=== PATIENT | male | born 1945 | race Caucasian/White ===

== ENCOUNTER 2017-05-20 06:33 | Day surgery (SDC) | payer MEDICARE, BC ==
[2017-05-17 15:32] VITALS: BMI 33.2
[~2017-05-20 06:33] MED LIST: DEXAMETHASONE SOD PHOSPHATE 10 MG/ML 1 ML VIAL IV ONE; HEPARIN SODIUM,PORCINE 5,000 UNIT/ML 1 ML VIAL SQ ONE; HYDROmorphone 0.5 MG/0.5 ML SYRINGE IVP PRN; LACTATED RINGERS 1,000 ML IV SCH; LIDOCAINE 1% 20 ML VIAL (10MG/ML) FOR IV START INTRADERMA PRN; MIDAZOLAM 2 MG/2 ML VIAL IV PRN; ONDANSETRON 4 MG/2 ML VIAL IVP ONE; Pre Op ABX Message 1 EACH MISC MISCELLANE ONE; SCOPOLAMINE 1.5MG/72HR PATCH TRANSDERM ONE
[2017-05-20 06:51] VITALS: RESP 16; TEMP 97.1
[2017-05-20] MEDS ORDERED: BUPIVACAINE (PF) 0.25% 30 ML VIAL SQ ONE ×2 (07:49)
--- NOTE | 2017-05-20 07:59 | P.GSHP ---
History of Present Illness H&P Date: 05/20/17 Chief Complaint: Right scalp skin lesion This is a 71-year-old male who presents today for excision of a right lateral scalp skin lesion. Patient developed a 1 cm lesion behind his right ear. The lesion is tender. It is been present for approximately 2 months. It is nonhealing. 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 BPH; Grave's disease, lesion rt scalp History of Any Multi-Drug Resistant Organisms: None Reported Past Surgical History: Appendectomy, Cholecystectomy, Orthopedic Surgery Past Anesthesia/Blood Transfusion Reactions: No Reported Reaction Smoking Status: Former smoker - Past Family History Daughter(s) Family Medical History: Cancer Additional Family Medical History / Comment(s): breast cancer Father Family Medical History: Cancer Additional Family Medical History / Comment(s): lung Medications and Allergies Home Medications Medication Instructions Recorded Confirmed Type Cetirizine HCl/Pseudoephedrine 1 each PO BID PRN 11/06/13 05/20/17 History [Zyrtec-D Tablet] Levothyroxine Sodium [Synthroid] 150 mcg PO DAILY 11/06/13 05/20/17 History Lisinopril [Zestril] 5 mg PO DAILY 11/06/13 05/20/17 History Multivitamins, Thera [Multivitamin] 1 each PO DAILY 11/06/13 05/17/17 History Tadalafil [Cialis] 5 mg PO DAILY 11/06/13 05/20/17 History Metoprolol Tartrate [Lopressor] 12.5 mg PO DAILY 05/17/17 05/20/17 History Pantoprazole [Protonix] 40 mg PO DAILY 05/17/17 05/20/17 History Allergies Allergy/AdvReac Type Severity Reaction Status Date / Time budesonide [From Symbicort] Allergy nose bleeds Verified 05/20/17 07:08 formoterol [From Symbicort] Allergy nose bleeds Verified 05/20/17 07:08 Surgical - Exam Vital Signs Temp Pulse Resp BP Pulse Ox 97.1 F L 76 16 132/82 96 05/20/17 06:50 05/20/17 06:50 05/20/17 06:50 05/20/17 06:50 05/20/17 06:50 - General well developed, no distress - Eyes PERRL - ENT 1 cm scaly erythematous skin lesion steered to the ear - Neck no masses - Respiratory normal expansion - Cardiovascular Rhythm: regular - Abdomen Abdomen: soft, non tender Assessment and Plan Assessment: Right scalp lesion. We'll perform excisional biopsy.
[2017-05-20] MEDS ORDERED: ePHEDrine SULFATE/0.9% NACL/PF 50 MG/5 ML SYRINGE IV ONE (08:06)
[2017-05-20] MEDS ORDERED: PROPOFOL 10 MG/ML 20 ML VIAL IV ONE (08:06)
[2017-05-20] MEDS ORDERED: fentaNYL (PF) 50 MCG/ML 2 ML AMP ONE (08:06)
[2017-05-20] MEDS ORDERED: MIDAZOLAM 2 MG/2 ML VIAL ONE (08:06)
[2017-05-20] MEDS ORDERED: SODIUM CHLORIDE 0.9% 50 ML with ceFAZolin 2,000 MG IV ONE ×2 (08:22)
--- NOTE | 2017-05-20 09:24 | P.OP ---
Date of Procedure: 05/20/17 Preoperative Diagnosis: Right posterior ear scalp lesion Postoperative Diagnosis: Defer to pathology Procedure(s) Performed: Excision of scalp lesion Anesthesia: MAC Surgeon: Robbin Vital Estimated Blood Loss (ml): 5 Pathology: other (Scalp lesion) Condition: stable Disposition: PACU Description of Procedure: Patient's placed on the operating room table in the supine position. His scalp had been previously shaved in the preoperative hold area the scalp was prepped in usual sterile fashion. The scalp anesthetized 1% local Xylocaine. Using a 15 blade in elliptical skin incision was made around the lesion. The lesion measured approximately 1 cm diameter. The Bovie was used for hemostasis. The skin was closed interrupted 3-0 Monocryl suture. Dermabond was applied. Patient top she will well and was sent to recovery room stable condition.
[2017-05-20 11:06] VITALS: BP 106/72; PULSE 80
== END 2017-05-20 09:34 | disposition home or self-care (01) ==
LOC: OR 06:33
PROVIDERS: ATTEND Surgery
DX: C44.42 Squamous cell carcinoma of skin of scalp and neck (principal); R07.9 Chest pain, unspecified; J44.9 Chronic obstructive pulmonary disease, unspecified; K21.9 Gastro-esophageal reflux disease without esophagitis; I10 Essential (primary) hypertension; K22.70 Barrett's esophagus without dysplasia; N40.0 Benign prostatic hyperplasia without lower urinary tract symptoms; E05.00 Thyrotoxicosis with diffuse goiter without thyrotoxic crisis or storm; Z79.899 Other long term (current) drug therapy; Z88.8 Allergy status to other drugs, medicaments and biological substances; Z87.891 Personal history of nicotine dependence
CPT/HCPCS: 88305; 11621; J2250; J1644; J1100; J2405; J3010; J0690; J2704

== ENCOUNTER 2017-06-16 19:50 | Emergency (ER) | payer MEDICARE, BC ==
[2017-06-16 20:04] VITALS: RESP 18
[2017-06-16] MEDS ORDERED: KETOROLAC 30 MG/ML 1 ML VIAL IVP STA (20:04)
--- NOTE | 2017-06-16 20:10 | ED ---
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 He states it was sharp and will get worse with deep breathing or certain movements. He felt a pop at that time. He was seen by the physician executive staff assistant at his doctor's office prescribed Motrin which did seem to help until earlier today when the pain started getting worse. He denies any fevers chills nausea vomiting sweats cough or phlegm production. The pain does get worse with deep breathing and movement at rest this about 3-4/10 severity does get much worse with movement or deep breathing. He denies any abdominal pain or any other symptoms. (Tang Haji) - Related Data Home Medications Medication Instructions Recorded Confirmed Cetirizine HCl/Pseudoephedrine 1 tab PO BID PRN 11/06/13 06/16/17 [Zyrtec-D Tablet] Lisinopril [Zestril] 5 mg PO DAILY 11/06/13 06/16/17 Multivitamins, Thera [Multivitamin] 1 tab PO DAILY 11/06/13 06/16/17 Tadalafil [Cialis] 5 mg PO DAILY 11/06/13 06/16/17 Metoprolol Tartrate [Lopressor] 12.5 mg PO DAILY 05/17/17 06/16/17 Pantoprazole [Protonix] 40 mg PO DAILY 05/17/17 06/16/17 Levothyroxine Sodium [Synthroid] 150 mcg PO DAILY 06/16/17 06/16/17 Previous Rx's Medication Instructions Recorded Hydrocodone/Acetaminophen [[place] 1 each PO Q6HR PRN #20 tab 06/16/17 5-325] Allergies Allergy/AdvReac Type Severity Reaction Status Date / Time budesonide [From Symbicort] AdvReac nose bleeds Verified 06/16/17 20:11 formoterol [From Symbicort] AdvReac nose bleeds Verified 06/16/17 20:11 Review of Systems ROS Other: All systems not noted in ROS Statement are negative. <Tang Haji - Last Filed: 06/16/17 21:05> ROS Other: All systems not noted in ROS Statement are negative. <Dl Mejias - Last Filed: 06/16/17 22:15> ROS Statement: Those systems with pertinent positive or pertinent negative responses have been documented in the HPI. 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 BPH; Grave's disease, lesion rt scalp History of Any Multi-Drug Resistant Organisms: None Reported Past Surgical History: Appendectomy, Cholecystectomy, Orthopedic Surgery Past Anesthesia/Blood Transfusion Reactions: No Reported Reaction Past Psychological History: No Psychological Hx Reported Smoking Status: Former smoker Past Alcohol Use History: None Reported Past Drug Use History: None Reported - Past Family History Daughter(s) Family Medical History: Cancer Additional Family Medical History / Comment(s): breast cancer Father Family Medical History: Cancer Additional Family Medical History / Comment(s): lung <Tang Haji - Last Filed: 06/16/17 21:05> General Exam Limitations: no limitations General appearance: alert, in no apparent distress Head exam: Present: atraumatic, normocephalic, normal inspection Eye exam: Present: normal appearance, PERRL, EOMI. Absent: scleral icterus, conjunctival injection, periorbital swelling ENT exam: Present: normal exam, mucous membranes moist Neck exam: Present: normal inspection. Absent: tenderness, meningismus, lymphadenopathy Respiratory exam: Present: normal lung sounds bilaterally, chest wall tenderness (Repeat is tenderness palpation along the right costal chondral margin). Absent: respiratory distress, wheezes, rales, rhonchi, stridor Cardiovascular Exam: Present: regular rate, normal rhythm, normal heart sounds. Absent: systolic murmur, diastolic murmur, rubs, gallop, clicks GI/Abdominal exam: Present: soft, normal bowel sounds. Absent: distended, tenderness, guarding, rebound, rigid Extremities exam: Present: normal inspection, full ROM, normal capillary refill. Absent: tenderness, pedal edema, joint swelling, calf tenderness Back exam: Present: normal inspection Neurological exam: Present: alert, oriented X3, CN II-XII intact Psychiatric exam: Present: normal affect, normal mood Skin exam: Present: warm, dry, intact, normal color. Absent: rash <Tang Haji - Last Filed: 06/16/17 21:05> <Dl Mejias - Last Filed: 06/16/17 22:15> - General Exam Comments Initial Comments: This is a well-developed well-nourished awake alert oriented times 3 male (Adithya Tang) Course <Tang Haji - Last Filed: 06/16/17 21:05> <Dl Mejias - Last Filed: 06/16/17 22:15> Vital Signs 06/16/17 19:55 Temperature 97.7 F Pulse Rate 66 Respiratory 18 Rate Blood Pressure 157/84 O2 Sat by Pulse 97 Oximetry - Reevaluation(s) Reevaluation #1: 06/16/17 21:05 The patient's care will be endorsed to Dr. Mejias at our shift change. I did discuss this with the patient has . CAT scan of the chest EKG and cardiac enzymes are pending. (Tang Haji) Medical Decision Making - Lab Data Result diagrams: 06/16/17 20:21 06/16/17 20:21 <Tang Haji - Last Filed: 06/16/17 21:05> - Lab Data Result diagrams: 06/16/17 20:21 06/16/17 20:21 <Dl Mejias - Last Filed: 06/16/17 22:15> - Medical Decision Making EKG shows sinus rhythm with occasional PAC at 60 bpm MO interval is 180 QRS 108 QT interval 426 QTC is 426. Patient's EKG shows no ST segment elevation or depression or T wave abnormalities are noted I took over the care of the patient at 9 PM. I will back and reexamined the patient patient indicated to me he originally hurt the right side of his chest wall and across patient twisting the wrong way and since then his been getting slowly better. Patient states today he twisted again and reinjured that area and he came in because of that pain. Patient states the pain is reproducible with palpation and hurts with deep breathing. I examined him it was exquisitely tender to palpation (Dl Mejias) - Lab Data Lab Results 06/16/17 06/16/17 06/16/17 Range/Units 20:21 20:21 20:21 WBC 7.2 (3.8-10.6) k/uL RBC 5.00 (4.30-5.90) m/uL Hgb 15.1 (13.0-17.5) gm/dL Hct 45.2 (39.0-53.0) % MCV 90.4 (80.0-100.0) fL MCH 30.2 (25.0-35.0) pg MCHC 33.4 (31.0-37.0) g/dL RDW 13.9 (11.5-15.5) % Plt Count 208 (150-450) k/uL Neutrophils % 63 % Lymphocytes % 22 % Monocytes % 6 % Eosinophils % 6 % Basophils % 1 % Neutrophils # 4.5 (1.3-7.7) k/uL Lymphocytes # 1.6 (1.0-4.8) k/uL Monocytes # 0.5 (0-1.0) k/uL Eosinophils # 0.4 (0-0.7) k/uL Basophils # 0.0 (0-0.2) k/uL PT (9.0-12.0) sec INR (<1.2) APTT (22.0-30.0) sec D-Dimer (<0.60) mg/L FEU Sodium 141 (137-145) mmol/L Potassium 4.3 (3.5-5.1) mmol/L Chloride 107 (98-107) mmol/L Carbon Dioxide 25 (22-30) mmol/L Anion Gap 9 mmol/L BUN 17 (9-20) mg/dL Creatinine 1.17 (0.66-1.25) mg/dL Est GFR (MDRD) Af Amer >60 (>60 ml/min/1.73 sqM) Est GFR (MDRD) Non-Af >60 (>60 ml/min/1.73 sqM) Glucose 112 H (74-99) mg/dL Calcium 9.3 (8.4-10.2) mg/dL Magnesium 2.2 (1.6-2.3) mg/dL Total Bilirubin 0.3 (0.2-1.3) mg/dL AST 28 (17-59) U/L ALT 35 (21-72) U/L Alkaline Phosphatase 81 (38-126) U/L Total Creatine Kinase 143 (55-170) U/L CK-MB (CK-2) 1.7 (0.0-2.4) ng/mL CK-MB (CK-2) Rel Index 1.2 Troponin I 0.016 (0.000-0.034) ng/mL Total Protein 6.6 (6.3-8.2) g/dL Albumin 3.8 (3.5-5.0) g/dL Amylase 191 H (30-110) U/L Lipase 144 (23-300) U/L 06/16/17 Range/Units 20:21 WBC (3.8-10.6) k/uL RBC (4.30-5.90) m/uL Hgb (13.0-17.5) gm/dL Hct (39.0-53.0) % MCV (80.0-100.0) fL MCH (25.0-35.0) pg MCHC (31.0-37.0) g/dL RDW (11.5-15.5) % Plt Count (150-450) k/uL Neutrophils % % Lymphocytes % % Monocytes % % Eosinophils % % Basophils % % Neutrophils # (1.3-7.7) k/uL Lymphocytes # (1.0-4.8) k/uL Monocytes # (0-1.0) k/uL Eosinophils # (0-0.7) k/uL Basophils # (0-0.2) k/uL PT 9.4 (9.0-12.0) sec INR 0.9 (<1.2) APTT 22.5 (22.0-30.0) sec D-Dimer 0.79 H (<0.60) mg/L FEU Sodium (137-145) mmol/L Potassium (3.5-5.1) mmol/L Chloride (98-107) mmol/L Carbon Dioxide (22-30) mmol/L Anion Gap mmol/L BUN (9-20) mg/dL Creatinine (0.66-1.25) mg/dL Est GFR (MDRD) Af Amer (>60 ml/min/1.73 sqM) Est GFR (MDRD) Non-Af (>60 ml/min/1.73 sqM) Glucose (74-99) mg/dL Calcium (8.4-10.2) mg/dL Magnesium (1.6-2.3) mg/dL Total Bilirubin (0.2-1.3) mg/dL AST (17-59) U/L ALT (21-72) U/L Alkaline Phosphatase (38-126) U/L Total Creatine Kinase (55-170) U/L CK-MB (CK-2) (0.0-2.4) ng/mL CK-MB (CK-2) Rel Index Troponin I (0.000-0.034) ng/mL Total Protein (6.3-8.2) g/dL Albumin (3.5-5.0) g/dL Amylase (30-110) U/L Lipase (23-300) U/L Disposition <Tang Haji - Last Filed: 06/16/17 21:05> Time of Disposition: 22:14 <Dl Mejias - Last Filed: 06/16/17 22:15> Clinical Impression: Chest wall tenderness Disposition: HOME SELF-CARE Instructions: Chest Wall Pain (ED) Prescriptions: Hydrocodone/Acetaminophen [[place] 5-325] 1 each PO Q6HR PRN #20 tab PRN Reason: Pain Referrals: Maddy Rodrigues III, MD [Primary Care Provider] - 1-2 days
[2017-06-16 20:32] LABS: Basophils % (A) 1 %; Eosinophils # (A) 0.4 k/uL (0-0.7); Eosinophils % (A) 6 %; HCT 45.2 % (39.0-53.0); HGB 15.1 gm/dL (13.0-17.5); Lymphocytes # (A) 1.6 k/uL (1.0-4.8); Lymphocytes % (A) 22 %; MCH 30.2 pg (25.0-35.0); MCHC 33.4 g/dL (31.0-37.0); MCV 90.4 fL (80.0-100.0); Mean Platelet Volume 6.9; Monocytes # (A) 0.5 k/uL (0-1.0); Monocytes % (A) 6 %; Neutrophils # (A) 4.5 k/uL (1.3-7.7); Neutrophils % (A) 63 %; Platelet Count 208 k/uL (150-450); RDW 13.9 % (11.5-15.5); WBC 7.2 k/uL (3.8-10.6)
[2017-06-16 20:45] LABS: ALT 35 U/L (21-72); AST 28 U/L (17-59); Albumin 3.8 g/dL (3.5-5.0); Alkaline Phosphatase 81 U/L (38-126); Amylase 191 U/L (30-110); Anion Gap 9 mmol/L; Blood Urea Nitrogen 17 mg/dL (9-20); Calcium 9.3 mg/dL (8.4-10.2); Carbon Dioxide 25 mmol/L (22-30); Chloride 107 mmol/L (98-107); Glucose 112 mg/dL (74-99); Lipase 144 U/L (23-300); Magnesium 2.2 mg/dL (1.6-2.3); Potassium 4.3 mmol/L (3.5-5.1); Sodium 141 mmol/L (137-145); Total Bilirubin 0.3 mg/dL (0.2-1.3); Total Protein 6.6 g/dL (6.3-8.2)
--- NOTE | 2017-06-16 20:46 | XR ---
EXAMINATION TYPE: XR ribs RT w pa chest xray DATE OF EXAM: 06/16/2017 COMPARISON: 11/28/2012 HISTORY: Right rib pain TECHNIQUE: 5 views FINDINGS: Heart and mediastinum are normal. Lungs are clear of infiltrate. There is no sign of pleura l effusion or pneumothorax. I see no displaced rib fracture. IMPRESSION: No active cardiopulmonary disease. No fracture. Chest is stable compared to old exam.
[2017-06-16 20:50] LABS: D-Dimer 0.79 mg/L FEU (<0.60)
[2017-06-16 20:54] LABS: INR 0.9 (<1.2); Partial Thromboplastin Time 22.5 sec (22.0-30.0); Prothrombin Time 9.4 sec (9.0-12.0)
[2017-06-16] MEDS ORDERED: RX INFO: IV CONTRAST WAS GIVEN 1 EACH MISC MISCELLANE PRN (21:02)
[2017-06-16 21:11] LABS: Creatine Kinase MB 1.7 ng/mL (0.0-2.4); Troponin I 0.016 ng/mL (0.000-0.034)
--- NOTE | 2017-06-16 21:56 | CT ---
EXAMINATION TYPE: CT angio chest DATE OF EXAM: 06/16/2017 9:40 PM COMPARISON: NONE HISTORY: Right rib pain x1 week. Elevated D-dimer. CT DLP: 435.9 mGycm Automated exposure control for dose reduction was used. CONTRAST: CTA scan of the thorax is performed with IV Contrast, patient injected with 100ml mL of Omnipaque 350 , pulmonary embolism protocol. There are 3-D post processed images.. FINDINGS: There is diffuse pulmonary emphysema. There is no evidence of a pulmonary mass. There is no pleural e ffusion. There is no pericardial effusion. Heart size is normal. There is normal contrast opacification of the pulmonary arteries. I see no filling defects. There is no evidence of aortic aneurysm or dissection. There is mild atheromatous change in the thoracic aorta . There is some spurring in the mid and lower thoracic spine. There is no mediastinal adenopathy. IMPRESSION: PULMONARY EMPHYSEMA. NO EVIDENCE OF PULMONARY EMBOLISM.
[2017-06-16 22:32] VITALS: BP 117/64; PULSE 78; TEMP 97
== END 2017-06-16 22:33 | disposition home or self-care (01) ==
LOC: EC 19:50
DX: R07.89 Other chest pain (principal); I49.1 Atrial premature depolarization; I10 Essential (primary) hypertension; K21.9 Gastro-esophageal reflux disease without esophagitis; N40.0 Benign prostatic hyperplasia without lower urinary tract symptoms; E07.9 Disorder of thyroid, unspecified; Z87.891 Personal history of nicotine dependence; Z79.899 Other long term (current) drug therapy; Z88.8 Allergy status to other drugs, medicaments and biological substances
CPT/HCPCS: 36415; 93005; 85379; 80053; 82150; 82550; 82553; 83690; 83735; 84484; 85025; 85610; 85730; 71101; 71275; 99285; 96374; Q9967; J1885

== ENCOUNTER 2018-04-13 07:25 | Day surgery (SDC) | payer MEDICARE, BC ==
[2018-04-10 13:16] VITALS: BMI 34.0
[~2018-04-13 07:25] MED LIST changes: -DEXAMETHASONE SOD PHOSPHATE 10 MG/ML 1 ML VIAL IV ONE; -HEPARIN SODIUM,PORCINE 5,000 UNIT/ML 1 ML VIAL SQ ONE; -HYDROmorphone 0.5 MG/0.5 ML SYRINGE IVP PRN; -ONDANSETRON 4 MG/2 ML VIAL IVP ONE; -Pre Op ABX Message 1 EACH MISC MISCELLANE ONE; -SCOPOLAMINE 1.5MG/72HR PATCH TRANSDERM ONE
[2018-04-13 07:42] VITALS: TEMP 97.5
--- NOTE | 2018-04-13 09:03 | P.PCN ---
Date of Procedure: 04/13/18 Procedure(s) Performed: Procedure: Esophagogastroduodenoscopy and biopsy. Preoperative diagnosis: History of Granado's esophagus. Postoperative diagnosis: 1. Sliding hiatal hernia and Granado's esophagus. 2. Mild antral gastritis. 3. Biopsies obtained from the antrum and the Granado's segment. Preparation and sedation: Was provided by anesthesia. Brief clinical history: The patient is a 72-year-old male who is scheduled for this evaluation because of history of Granado's esophagus. His last examination was in 2015. The patient takes Protonix daily and complains of heartburn if he doesn't watch what he eats. No dysphagia or other alarm symptoms. Procedure: With the patient on his left lateral decubitus position and after informed consent and adequate sedation, I passed the Olympus-GIF 160 video upper endoscope through the cricopharyngeus down the esophagus. GE junction was irregular and started around 34 cm from the incisors. The tubular esophagus continued for another 4 or 5 cm then we encountered a hiatal hernia measuring around 2 cm. The esophagus, including the Granado's segment, did not show any ulcers, erosions, tumors or strictures. The endoscope was then passed into the stomach which was insufflated with air and inspected in detail including the retroflex view in the cardia. There was mottling and erythema in the antrum but no ulcers or erosions. Pyloric channel, duodenal bulb, post bulbar area and descending duodenum appeared within normal limits. I obtained biopsies from the antrum and the Granado's segment then the endoscope was withdrawn. The patient tolerated the procedure well. Plan: The patient was reassured. Will await biopsy results. I anticipate repeating his upper endoscopy in 2-3 years. He will follow up with you as planned.
[2018-04-13 09:21] VITALS: BP 120/78; PULSE 78; RESP 18
== END 2018-04-13 09:37 | disposition home or self-care (01) ==
LOC: ORWHC2ENDO 07:25
DX: K22.70 Barrett's esophagus without dysplasia (principal); K29.50 Unspecified chronic gastritis without bleeding; K44.9 Diaphragmatic hernia without obstruction or gangrene; K21.9 Gastro-esophageal reflux disease without esophagitis; I10 Essential (primary) hypertension; N40.0 Benign prostatic hyperplasia without lower urinary tract symptoms; J44.9 Chronic obstructive pulmonary disease, unspecified; E07.9 Disorder of thyroid, unspecified; Z79.899 Other long term (current) drug therapy; Z79.890 Hormone replacement therapy; Z88.8 Allergy status to other drugs, medicaments and biological substances
CPT/HCPCS: 43239; 88305

== ENCOUNTER 2018-06-27 07:31 | Day surgery (SDC) | payer BC, MEDICARE ==
[~2018-06-27 07:31] MED LIST changes: +DEXAMETHASONE SOD PHOSPHATE 10 MG/ML 1 ML VIAL IV ONE; +HEPARIN SODIUM,PORCINE 5,000 UNIT/ML 1 ML VIAL SQ ONE; -MIDAZOLAM 2 MG/2 ML VIAL IV PRN; +ONDANSETRON 4 MG/2 ML VIAL IVP ONE; +ceFAZolin IN SWFI 2 GM/20 ML SYRINGE IVP ONE
[2018-06-27 08:14] VITALS: RESP 16
--- NOTE | 2018-06-27 08:45 | P.GSHP ---
History of Present Illness H&P Date: 06/27/18 Chief Complaint: Incarcerated umbilical hernia This a 72-year-old male who presents today for laparoscopic robotic-assisted repair of incarcerated umbilical hernia. Patient developed a 3 cm umbilical hernia. 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 BPH; Grave's disease, History of Any Multi-Drug Resistant Organisms: None Reported Past Surgical History: Appendectomy, Cholecystectomy, Orthopedic Surgery Additional Past Surgical History / Comment(s): repair FX elbow as a child ; EGD' S Past Anesthesia/Blood Transfusion Reactions: No Reported Reaction Past Psychological History: No Psychological Hx Reported Smoking Status: Former smoker Past Alcohol Use History: None Reported Additional Past Alcohol Use History / Comment(s): smoked 40 years 1ppd quit 2005 Past Drug Use History: None Reported - Past Family History Daughter(s) Family Medical History: Cancer Additional Family Medical History / Comment(s): breast cancer Father Family Medical History: Cancer Additional Family Medical History / Comment(s): lung Medications and Allergies Home Medications Medication Instructions Recorded Confirmed Type Cetirizine HCl/Pseudoephedrine 1 tab PO BID PRN 11/06/13 06/27/18 History [Zyrtec-D Tablet] Lisinopril [Zestril] 5 mg PO QAM 11/06/13 06/27/18 History Multivitamins, Thera [Multivitamin] 1 tab PO DAILY 11/06/13 06/27/18 History Metoprolol Tartrate [Lopressor] 12.5 mg PO QAM 05/17/17 06/27/18 History Pantoprazole [Protonix] 40 mg PO QAM 05/17/17 06/27/18 History Albuterol Inhaler [Ventolin Hfa 1 - 2 puff INHALATION RT-Q6H PRN 04/10/18 History Inhaler] Sildenafil Citrate [Viagra] 50 mg PO ONCE PRN 04/10/18 06/27/18 History Tamsulosin [Flomax] 0.4 mg PO QAM 04/10/18 06/27/18 History Levothyroxine Sodium [Synthroid] 150 mcg PO QAM 06/23/18 06/27/18 History Allergies Allergy/AdvReac Type Severity Reaction Status Date / Time budesonide [From Symbicort] AdvReac nose bleeds Verified 06/27/18 08:05 formoterol [From Symbicort] AdvReac nose bleeds Verified 06/27/18 08:05 Surgical - Exam Vital Signs Temp Pulse Resp BP Pulse Ox 97 F L 60 16 143/76 96 06/27/18 08:13 06/27/18 08:13 06/27/18 08:13 06/27/18 08:13 06/27/18 08:13 - General well developed, well nourished, no distress - Eyes PERRL - ENT normal pinna - Neck no masses - Respiratory normal expansion - Cardiovascular Rhythm: regular - Abdomen Abdomen: soft, non tender Hernia: umbilical (3 cm incarcerated umbilical hernia) Assessment and Plan Assessment: Incarcerated we'll hernia. We'll perform laparoscopic robotic-assisted repair.
[2018-06-27] MEDS ORDERED: MIDAZOLAM 2 MG/2 ML VIAL IV ONE (09:00)
[2018-06-27] MEDS ORDERED: PHENYLEPHRINE-0.9% NACL SYG 1 MG/10 ML SYRINGE ONE (09:26)
[2018-06-27] MEDS ORDERED: HYDROmorphone (PF) 1 MG/ML ONE (09:26)
[2018-06-27] MEDS ORDERED: VECURONIUM 10 MG VIAL IV ONE (09:26)
[2018-06-27] MEDS ORDERED: SUCCINYLCHOLINE CHLORIDE 100 MG/5 ML SYR IV ONE (09:26)
[2018-06-27] MEDS ORDERED: PROPOFOL 10 MG/ML 20 ML VIAL IV ONE (09:26)
[2018-06-27] MEDS ORDERED: ePHEDrine SULFATE/0.9% NACL/PF 50 MG/5 ML SYRINGE IV ONE (09:26)
[2018-06-27] MEDS ORDERED: fentaNYL (PF) 50 MCG/ML 2 ML AMP ONE (09:26)
[2018-06-27] MEDS ORDERED: LIDOCAINE 1% INJ 10MG/ML (20 ML MDV) ONE (09:26)
[2018-06-27] MEDS ORDERED: BUPIVACAINE-EPI 0.5%-1:200,000 10 ML VIAL SQ ONE (09:52)
[2018-06-27 10:29] VITALS: TEMP 96.8
--- NOTE | 2018-06-27 10:31 | P.OP ---
Date of Procedure: 06/27/18 Preoperative Diagnosis: Incarcerated umbilical hernia Postoperative Diagnosis: Incarcerated umbilical hernia Adhesions Procedure(s) Performed: Laparoscopic robotic-assisted repair of incarcerated umbilical hernia Laparoscopic lysis of adhesions Anesthesia: SRINIVASAN Surgeon: Robbin Vital Estimated Blood Loss (ml): 5 Pathology: other (Incarcerated fat/ omentum) Condition: stable Disposition: PACU Description of Procedure: The patient was placed on the operating table in the supine position. He received general anesthesia. His abdomen was prepped and draped usual fashion. Using a 5 mm optical trocar under direct visualization the peritoneal cavity was entered in the left upper quadrant. The abdomen was then insufflated. The laparoscope was placed back into the perineal cavity. Next a 8 mm robotic trocar was placed in the left lower quadrant and a 12 mm robotic trocar was placed in the left lateral position. The original 5 mm trocar was exchanged for a 8 mm robotic trocar. The patient's placed in the left side up position. And the patient was undocked the robot. The umbilical hernia was visualized. There were adhesions to the abdominal wall. The adhesions were taken down with the hook cautery. Using hook cautery the peritoneum over the umbilical hernia was excised. The incarcerated omentum/ fat was transected The fascial opening was repaired using 0V LOC suture. Next a piece of 11 cm round ventral light ST mesh was placed into the. Cavity and secured with 2 OV lock suture. The patient was undocked the robot. The needles were retrieved. The incarcerated fat was retrieved. The fascia of the 12 mm trocar site was closed with 0 Ethibond suture. Skin was closed interrupted 3-0 Monocryl suture. Dermabond dressings was applied. Patient top procedure well and was sent to recovery room stable condition.
[2018-06-27] MEDS: HYDROmorphone 0.5 MG/0.5 ML SYRINGE IVP PRN ×2 (10:43→10:48)
[2018-06-27] MEDS: fentaNYL (PF) 50 MCG/ML 2 ML AMP IVP ONE ×5 (11:00→11:18)
[2018-06-27] MEDS ORDERED: HYDROcodone/APAP 7.5-325MG 1 EACH TAB PO ONE (11:38)
[2018-06-27 12:59] VITALS: BP 120/72; PULSE 66
== END 2018-06-27 13:23 | disposition home or self-care (01) ==
LOC: OR 07:31
PROVIDERS: ATTEND Surgery
DX: K42.0 Umbilical hernia with obstruction, without gangrene (principal); I10 Essential (primary) hypertension; I20.9 Angina pectoris, unspecified; J44.9 Chronic obstructive pulmonary disease, unspecified; K21.9 Gastro-esophageal reflux disease without esophagitis; K22.70 Barrett's esophagus without dysplasia; N40.0 Benign prostatic hyperplasia without lower urinary tract symptoms; E05.00 Thyrotoxicosis with diffuse goiter without thyrotoxic crisis or storm; Z87.891 Personal history of nicotine dependence; Z79.899 Other long term (current) drug therapy; Z79.890 Hormone replacement therapy; Z88.8 Allergy status to other drugs, medicaments and biological substances
CPT/HCPCS: 88305; 49653; C1781; J2250; J1644; J1100; J2405; J2001; J3010; J1170 ×2; J2370; J0330; J2704; J0690

== ENCOUNTER → 2019-12-18 | Outpatient (CLI) | payer MEDICARE ==
--- NOTE | 2019-12-18 19:20 | CTL ---
EXAMINATION TYPE: CT Low Dose Lung DATE OF EXAM ORDERED: 12/18/2019 HISTORY: . Lung cancer screening CT DLP: 98.[address] CTDI: 2.6 mGy Automated exposure control for dose reduction was used. SCREENING VISIT: COMPARISON: 06/16/2017, CT abdomen pelvis 10/29/2010 TECHNIQUE: Low dose computed tomography scan was performed through the chest at 1 mm thick sections a nd reconstructed images in the coronal plane at [address] DIAGNOSTIC QUALITY: Satisfactory FINDINGS: LUNG NODULES: 1. There are scattered sub-5 mm subpleural nodules which have a benign appearance. 2. There is a 2 mm right lower lobe pulmonary nodule axial image 236 may contain a calcification and represent a small granuloma. LUNGS: Diffuse emphysematous changes are seen with no evidence of consolidation, pleural effusion or pneumot horax. No focal pneumonia. Interlobular septal thickening suggest chronic interstitial lung disease. PLEURAL SPACE: Effusion: None Calcification: None Thickening: None Pneumothorax: None HEART: Heart size is mildly prominent there is coronary artery calcification. Atherosclerotic change of the aorta with no evidence of aneurysm. OTHER FINDINGS: Hypertrophic and degenerative changes spine. Chronic rib deformities noted suggestive of remote traum a. Nonspecific 6 mm soft tissue nodule anterior to the liver in the upper abdomen which could be correla russ with a dedicated CT scan. Findings retrospectively stable from multiple prior exams dating back t o 2010 and therefore benign. IMPRESSION: 1. Sub-5 mm pulmonary nodules have a benign appearance. 2. Diffuse COPD with coronary artery atherosclerotic disease correlate clinically. 3. Correlate for chronic interstitial pulmonary fibrosis. 4. Soft tissue mass anterior to the liver is stable dating back to 2010 and therefore likely benign. FOLLOW UP CT CHEST RECOMMENDATION: Annual screening with follow-up [address] scan recommended CT LUNG RAD: Lung-Rad 2 Benign Appearance or Behavior
== END | disposition home or self-care (01) ==
LOC: RADCTMAIN 16:53
PROVIDERS: ATTEND Internal Medicine Critical Care Medicine
DX: Z12.2 Encounter for screening for malignant neoplasm of respiratory organs (principal); Z87.891 Personal history of nicotine dependence

== ENCOUNTER → 2020-03-06 | Outpatient (CLI) | payer MEDICARE ==
--- NOTE | 2020-03-06 16:15 | XR ---
EXAMINATION TYPE: XR shoulder complete RT DATE OF EXAM: 03/06/2020 CLINICAL HISTORY: Chronic pain TECHNIQUE: Three views of the right shoulder are obtained. COMPARISON: None. FINDINGS: There is no acute fracture/dislocation evident in the right shoulder. Moderate to severe n arrowing with moderate spurring at acromioclavicular joint. And distal acromion morphology unremarka ble. Glenohumeral joint shows [id number] narrowing. The visualized ribs are intact and unremark able. IMPRESSION: As above.
== END | disposition home or self-care (01) ==
LOC: RADXRMAIN 15:53
PROVIDERS: ATTEND Family Medicine
DX: M25.811 Other specified joint disorders, right shoulder (principal); M25.711 Osteophyte, right shoulder

== ENCOUNTER → 2020-11-27 | Outpatient (CLI) | payer MEDICARE ==
--- NOTE | 2020-11-27 18:59 | XR ---
EXAMINATION TYPE: AP view pelvis and 2 views each hip DATE OF EXAM: 11/27/2020 COMPARISON: 06/01/2010 HISTORY: 75-year-old male M2 5.551, right hip pain. FINDINGS: All There may be very mild spurring of both hips but overall hip joint space is maintained. Mild to moder ate disc interspace narrowing at L4-L5 is new from 2010. SI joints appear symmetric and intact as is the pubic symphysis. No acute fracture, subluxation, dislocation. IMPRESSION: There may be mild degenerative spurring at the hips but overall hip joint space is maintained on both sides. Mild to moderate degenerative disc disease at L4-L5 has developed from 2010.
== END | disposition home or self-care (01) ==
LOC: RADXRMAIN 13:19
PROVIDERS: ATTEND Family Medicine
DX: M25.551 Pain in right hip (principal)
CPT/HCPCS: 73521

== ENCOUNTER → 2021-04-15 | Day surgery (SDC) | payer MEDICARE ==
[2021-04-14 10:44] VITALS: BMI 35.4
[~2021-04-15] MED LIST changes: -DEXAMETHASONE SOD PHOSPHATE 10 MG/ML 1 ML VIAL IV ONE; -HEPARIN SODIUM,PORCINE 5,000 UNIT/ML 1 ML VIAL SQ ONE; +LIDOCAINE 1% (10MG/ML) FOR IV START INTRADERMA PRN; -LIDOCAINE 1% 20 ML VIAL (10MG/ML) FOR IV START INTRADERMA PRN; +LIDOCAINE 1% INJ 10MG/ML (20 ML MDV) ONE; -ONDANSETRON 4 MG/2 ML VIAL IVP ONE; +PROPOFOL 10 MG/ML 20 ML VIAL IV ONE; -ceFAZolin IN SWFI 2 GM/20 ML SYRINGE IVP ONE
[2021-04-15 10:46] VITALS: TEMP 97.6
--- NOTE | 2021-04-15 12:22 | P.PCN ---
Date of Procedure: 04/15/21 Procedure(s) Performed: BRIEF HISTORY: Patient is a 75-year-old, pleasant, white male scheduled for an upper endoscopy as a part of evaluation of long-standing history of GERD and Granado's esophagus. PROCEDURE PERFORMED: Esophagogastroduodenoscopy with biopsy. PREOPERATIVE DIAGNOSIS: Long-standing history of GERD and Granado's esophagus. IV sedation per anesthesia. PROCEDURE: After informed consent was obtained, the patient was brought into the endoscopy unit. IV sedation was administered by Anesthesia under continuous monitoring. Initially the Olympus GIF-140 video endoscope was inserted into the mouth. Esophagus intubated without any difficulty. It was gradually advanced into the stomach and duodenum and carefully examined. The bulb and the second part of the duodenum appeared normal. The scope at this time was withdrawn to the stomach, adequately insufflated with air, and upon careful examination, mucosa of the antrum, body, cardia and the fundus appeared normal. The scope was then withdrawn into the esophagus. The GE junction was located at 38 cm from the incisors. Moderate size hiatal hernia noted. As long segment of Granado's esophagus extending from 34-38 cm from the incisors and multiple biopsies were done from this area. The rest of the esophagus appeared normal. There were no erosions or ulcerations seen and the patient tolerated the procedure well. IMPRESSION: 1. Long segment Granado's esophagus extending from 34-38 any medicine the incisors status post biopsy. 2. Moderate size hiatal hernia RECOMMENDATIONS: The findings of this examination were discussed with the patient as well as his family. He was advised to follow with the biopsy results. If the biopsy results evidence of Granado's esophagus he can have a repeat upper endoscopy in 3 years.
[2021-04-15 12:34] VITALS: RESP 16
[2021-04-15 12:51] VITALS: BP 116/78; PULSE 63
== END ==
LOC: ORWHC2ENDO 09:56
PROVIDERS: ATTEND Internal Medicine Gastroenterology
DX: K22.70 Barrett's esophagus without dysplasia (principal); K44.9 Diaphragmatic hernia without obstruction or gangrene; K21.9 Gastro-esophageal reflux disease without esophagitis; E05.00 Thyrotoxicosis with diffuse goiter without thyrotoxic crisis or storm; I10 Essential (primary) hypertension; J44.9 Chronic obstructive pulmonary disease, unspecified; G47.33 Obstructive sleep apnea (adult) (pediatric); Z79.899 Other long term (current) drug therapy; Z88.8 Allergy status to other drugs, medicaments and biological substances; Z79.02 Long term (current) use of antithrombotics/antiplatelets
CPT/HCPCS: 88305; 43239; J2001; J2704

== ENCOUNTER 2023-12-21 06:34 | Day surgery (SDC) | payer MEDICARE ==
[2023-12-15 11:16] VITALS: BMI 34.0
[2023-12-21 07:38] VITALS: TEMP 97.3
[2023-12-21] MEDS: IV FLUID CONTINUATION 1,000 ML IV ONE (07:46)
[2023-12-21] MEDS: LACTATED RINGERS 1,000 ML IV SCH (07:49)
[2023-12-21] MEDS ORDERED: PROPOFOL 10 MG/ML 20 ML VIAL IV ONE (07:55)
--- NOTE | 2023-12-21 08:19 | P.PCN ---
Date of Procedure: 12/21/23 Procedure(s) Performed: Brief history: Patient is a pleasant 78-year-old white male scheduled for an elective upper endoscopy as well as colonoscopy as a part of evaluation of function history of GERD/Granado's esophagus and change in bowel habits Procedure performed: Esophagogastroduodenoscopy with biopsy Colonoscopy Preoperative diagnosis: Longstanding history of GERD/Granado's esophagus Change in bowel habits Anesthesia: MAC Procedure: After informed consent was obtained from the patient was brought into the endoscopy unit and IV sedation was administered by anesthesia under continuous monitoring. Initially upper endoscopy was done. The Olympus GF 160 video endoscope was inserted inserted into the mouth and esophagus intubated without any difficulty and was gradually advanced into the stomach and duodenum and carefully examined. The bulb and second part of the duodenum appeared normal. The scope was then withdrawn into the stomach adequately insufflated with air and upon careful examination the antrum and body, cardia and fundus appeared normal. The scope was then withdrawn into the esophagus. Small hiatal hernia noted. The GE junction was located at 40 cm to the incisors. There was a long segment of Granado's esophagus extending from 35 to 40 cm from incisors and mult iple biopsies were done from this area. Rest of the esophagus appeared normal and the patient tolerated the procedure well. At this time the patient continued to remain sedation. Initial digital rectal examination was normal. Olympus CF 160 video colonoscope was then inserted into the rectum and gradually advanced to the cecum without any difficulty. Careful examination was performed as the scope was gradually being withdrawn. The prep was excellent. The cecum, ascending colon, transverse colon, descending colon, sigmoid colon and rectum appeared normal. Moderate left-sided diverticulosis retroflexion was performed in the rectum and small internal hemorrhoids were noted. Patient tolerated the procedure well. Impression: 1. Upper endoscopy revealed long segment Granado's esophagus extending from 35 to 40 cm from the incisors s/p multiple biopsies and small hiatal hernia 2. Colonoscopy revealed moderate left-sided diverticulosis and small internal hemorrhoids Recommendations: Findings of this examination were discussed with the patient as well as his family. He was advised to follow-up with the biopsy results. The biopsies do not show any evidence of dysplasia, he can have repeat upper endoscopy in 3 years.
[2023-12-21 08:42] VITALS: BP 111/66; PULSE 60; RESP 16
== END 2023-12-21 09:14 | disposition home or self-care (01) ==
LOC: ORWHC2ENDO 06:34
PROVIDERS: ATTEND Internal Medicine Gastroenterology
DX: K57.30 Diverticulosis of large intestine without perforation or abscess without bleeding (principal); K64.8 Other hemorrhoids; K44.9 Diaphragmatic hernia without obstruction or gangrene; I10 Essential (primary) hypertension; E78.5 Hyperlipidemia, unspecified; J44.9 Chronic obstructive pulmonary disease, unspecified; H40.9 Unspecified glaucoma; N40.1 Benign prostatic hyperplasia with lower urinary tract symptoms; E03.9 Hypothyroidism, unspecified; Z87.891 Personal history of nicotine dependence; Z79.890 Hormone replacement therapy; Z79.899 Other long term (current) drug therapy; Z88.8 Allergy status to other drugs, medicaments and biological substances
CPT/HCPCS: 88305; 43239; J2704; G0121; 45378